=== PATIENT | male | born 1950 | race Caucasian/White ===

== ENCOUNTER 2019-05-12 11:49 | Emergency (ER) | payer MEDICARE ==
[2019-05-12 13:18] VITALS: BP 134/82
--- NOTE | 2019-05-12 13:30 | UC ---
Respiratory Complaint HPI - HPI Summary HPI Summary: 69 year old male with cough and cold symptoms for the past week. Non-productive but moist. Has a HX of pneumonia. 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 He has not had this recently, but he went to [facility] in [place], [place] for a Neurology and Caridac work- up and the only thing found was the sensitive vagal nerve. He states the other day, he coughed really hard while he was sitting in his recliner and passed out. He denies chest pain or any other symptoms. It was unwitnessed, and he is not sure how long he was out. - History of Current Complaint Chief Complaint: UCRespiratory Stated Complaint: COUGH Time Seen by Provider: 05/12/19 13:29 Hx Obtained From: Patient Onset/Duration: Gradual Onset, Lasting Days Timing: Intermittent Episodes Severity Initially: Mild Severity Currently: Mild Pain Intensity: 0 Character: Cough: Nonproductive Aggravating Factors: Deep Breaths Alleviating Factors: Nothing Associated Signs And Symptoms: Positive: Wheezing, URI, Nasal Congestion, Sinus Discomfort - Allergies/Home Medications Allergies/Adverse Reactions: Allergies Allergy/AdvReac Type Severity Reaction Status Date / Time morphine Allergy Hallucinati Verified 05/12/19 13:02 ons Home Medications: Home Medications Blood Pressure Med 1 tab DAILY 05/12/19 [History Confirmed 05/12/19] PMH/Surg Hx/FS Hx/Imm Hx Previously Healthy: Yes Cardiovascular History: Hypertension - Surgical History Surgical History: Yes Surgery Procedure, Year, and Place: RIGHT ELBOW INFECTION-DRAINED [facility]. VOCAL CHORD LESIONS-[facility]. LEFT THUMB. RIGHT KNEE. Back surgery for spinal stenosis - Family History Known Family History: Positive: Non-Contributory - Social History Lives: With Family Alcohol Use: Daily Alcohol Amount: 6-12 DAILY BEER Substance Use Type: None Smoking Status (MU): Former Smoker Type: Cigarettes Amount Used/How Often: 11/2 PPD X 40 YEARS Length of Time of Smoking/Using Tobacco: 8 yrs ago When Did the Patient Quit Smoking/Using Tobacco: 2005 Household Exposure Type: Cigarettes Review of Systems All Other Systems Reviewed And Are Negative: Yes ENT: Positive: Nasal Discharge, Sinus Congestion, Sinus Pain/Tenderness Respiratory: Positive: Cough - Occasional wheezing Is Patient Immunocompromised?: No Physical Exam Triage Information Reviewed: Yes Appearance: Well-Appearing, No Pain Distress, Well-Nourished Vital Signs: Initial Vital Signs Temp 97.5 F 05/12/19 13:04 Pulse 89 05/12/19 13:04 Resp 16 05/12/19 13:04 BP 134/82 05/12/19 13:04 Pulse Ox 96 05/12/19 13:04 Vital Signs Reviewed: Yes Eyes: Positive: Conjunctiva Clear ENT: Positive: Pharynx normal, Nasal congestion, Nasal drainage - Yellow purulent nasal coryza, TMs normal, Sinus tenderness - Tender over the maxillary sinuses bilaterally, Uvula midline Neck: Positive: Supple, Nontender, No Lymphadenopathy Respiratory: Positive: Lungs clear, Normal breath sounds, No respiratory distress, No accessory muscle use, Rhonchi, Wheezing - Mild scattered rhonchi and wheezing with forced expiration. Cardiovascular: Positive: RRR, No Murmur, Pulses Normal, Brisk Capillary Refill Musculoskeletal Exam: Normal Neurological Exam: Normal Psychological Exam: Normal Skin Exam: Normal Respiratory Course/Dx - Course Course Of Treatment: CXR: FINDINGS: The heart and mediastinum are normal in size and contour. The lungs are grossly clear. There is no evidence of large pleural effusion. Visualized bones are normal for the patient's age. There is no radiographic evidence of free air beneath the diaphragm IMPRESSION: No radiographic evidence of acute cardiopulmonary disease. Duoneb: Patient states that he did not have any worsening of symptoms nor did he feel and improvement following the treatment however his lungs had better air movement and decreased wheezing. - Differential Dx/Diagnosis Provider Diagnosis: Sinusitis, Bronchitis Discharge ED - Sign-Out/Discharge Documenting (check all that apply): Patient Departure All imaging exams completed and their final reports reviewed: Yes - Discharge Plan Condition: Stable Disposition: HOME Prescriptions: Albuterol HFA INHALER* [Ventolin HFA Inhaler*] 2 puff INH Q4H PRN 5 Days #1 mdi PRN Reason: Wheezing DOXYcycline CAP(*) [DOXYcycline 100MG CAP(*)] 100 mg PO BID 10 Days #20 cap Patient Education Materials: Sinusitis (ED), Acute Bronchitis (ED) Referrals: Crescencio Hall MD [Primary Care Provider] - Additional Instructions: Increase fluids, Use your albuterol inhaler 2 puffs every 4 hours while awake over the next 2-3 days and then as needed. No antacids, multivitamins or dairy products 2 hours before or 2 hours after you take the Doxycycline however take it with food. Follow up with your doctor next week if no improvement. Go to the ER if worsening symptoms. - Billing Disposition and Condition Condition: STABLE Disposition: Home
[2019-05-12] MEDS ORDERED: Albuterol/Ipratropium NEB.SOL* Albuterol 2.5 MG/Ipratropium 0.5 MG 3 ML INH ONE (13:38)
== END 2019-05-12 14:38 | disposition home or self-care (01) ==
LOC: UCCORT 11:49
DX: J32.9 Chronic sinusitis, unspecified (principal); J40 Bronchitis, not specified as acute or chronic; I10 Essential (primary) hypertension; Z88.5 Allergy status to narcotic agent; Z87.891 Personal history of nicotine dependence
CPT/HCPCS: 71046; 93005; 99212; A9270-GY; G0463

== ENCOUNTER 2022-12-15 08:41 | Observation (INO) ==
[~2022-12-15 08:41] MED LIST: Buffered Lidocaine 1% SYRIN 1 ml INTRADERM ONE; HYDROcodone/ACETAMIN 5/325 mg TAB PO PRN; Lactated Ringers 1000 ml BAG 1,000 ML IV SCH; Metoclopramide 5 MG/ML VIAL (10 mg) IV PRN; Naloxone 0.4 mg VIAL 0.4 mg/ml 1 ml VIAL IV PRN; Ondansetron 4 mg VIAL 2 MG/ML 2 ml VIAL IV PRN
[2022-12-15] MEDS ORDERED: Chlorhexidine MOUTHWASH 0.12% 15 ML UDC ONE (08:54)
[2022-12-15] MEDS ORDERED: ceFAZolin 2 GM in NS PREMIX 2 GM/100 ML BAG IVPB ONE (09:21)
[2022-12-15] MEDS ORDERED: Dexamethasone IV 4 MG/ML VIAL 1 ml VIAL ONE (09:34)
[2022-12-15] MEDS ORDERED: Rocuronium 50 mg VIAL 10 mg/ml 5 ml VIAL (50 mg) ONE (09:34)
[2022-12-15] MEDS ORDERED: Propofol 10 MG/ML 20 ML BTL ONE (09:34)
[2022-12-15] MEDS ORDERED: Ondansetron 4 mg VIAL 2 MG/ML 2 ml VIAL ONE (09:34)
[2022-12-15] MEDS ORDERED: fentaNYL 100 mcg/2 ml 50 MCG/ML VIAL ONE ×3 (09:34→14:42)
[2022-12-15] MEDS ORDERED: Lidocaine 2% PF 5 ML VIAL ONE (09:34)
[2022-12-15] MEDS ORDERED: Midazolam 2 mg/2 ml VIAL 1 mg/ml 2 ml VIAL (2 mg) ONE (09:34)
[2022-12-15 09:40] LABS: Rapid COVID-19 Molecular Undetected (Undetected)
[2022-12-15] MEDS ORDERED: Thrombin 5,000 UNITS 1 APPLIC KIT - topical use - TOPICAL ONE (10:31)
[2022-12-15] MEDS ORDERED: Gelfoam Sponge SIZE 100 SPONGE ONE (10:31)
[2022-12-15] MEDS ORDERED: Lidocaine 1% w EPI 1:100,000 MDV 20 ML VIAL ONE (10:31)
[2022-12-15] MEDS ORDERED: ceFAZolin VIAL VIAL ONE (10:31)
[2022-12-15] MEDS ORDERED: Sterile Water for Inj 10 ML ONE (12:25)
[2022-12-15] MEDS ORDERED: HYDROmorphone 0.5 MG/0.5 ML SYRINGE ONE ×2 (12:58→13:12)
[2022-12-15] MEDS ORDERED: Calcium Carb (TUMS) 500 mg CHEW TAB PO PRN (14:39)
[2022-12-15] MEDS ORDERED: Senna TAB 8.6 mg TAB PO PRN (14:39)
[2022-12-15] MEDS ORDERED: Ondansetron 4 mg VIAL 2 MG/ML 2 ml VIAL IV PRN (14:39)
[2022-12-15] MEDS ORDERED: HYDROcodone/ACETAMIN 5/325 mg TAB PO PRN (14:39)
[2022-12-15] MEDS: fentaNYL 100 mcg/2 ml 50 MCG/ML VIAL IV PRN ×2 (14:44→15:04)
[2022-12-15] MEDS ORDERED: Albuterol HFA INHALER 8 gm MDI INH PRN (14:46)
[2022-12-15] MEDS: Lactated Ringers 1000 ml BAG 1,000 ML IV SCH (16:16)
[2022-12-15] MEDS ORDERED: Dextran 70/Hypromellose Tears Eye Drops 15 ml BTL (for Artificials Tears) LEFT EYE PRN (19:19)
[2022-12-15] MEDS: HYDROcodone/ACETAMIN 5/325 mg TAB PO PRN (20:06)
[2022-12-15] MEDS ORDERED: Aspirin EC 81 mg TAB.EC (enteric coated) PO SCH (21:00)
[2022-12-15] MEDS ORDERED: CMCS:FLUTICAS/UMECLI/VILANT 100-62.5-25 MDI (NF) INH SCH (21:00)
[2022-12-16] MEDS: Lactated Ringers 1000 ml BAG 1,000 ML IV SCH (05:58)
[2022-12-16 06:14] VITALS: BP 168/78
[2022-12-16] MEDS: HYDROcodone/ACETAMIN 5/325 mg TAB PO PRN (07:14)
[2022-12-16] MEDS ORDERED: FLUTICAS/UMECLI/VILANT 100-62.5-25 MDI (NF) INH SCH (21:00)
== END 2022-12-16 11:25 | disposition home or self-care (01) ==
LOC: OR 08:41 → SSU 08:41
PROVIDERS: ADMIT Neurological Surgery; ATTEND Neurological Surgery